=== PATIENT | male | born 1945 | race Hispanic/Latino ===

== ENCOUNTER → 2023-10-10 | Outpatient (CLI) | payer OTHER ==
[~2023-10-10] MED LIST: ASPI-1443 PO; ATOR40TA69 PO; LISI10TA24 PO; TAMS0.4C32 PO
== END | disposition home or self-care (01) ==
LOC: RAH 12:02
PROVIDERS: ATTEND Orthopaedic Surgery
DX: M17.11 Unilateral primary osteoarthritis, right knee (principal); M85.89 Other specified disorders of bone density and structure, multiple sites; M77.31 Calcaneal spur, right foot
CPT/HCPCS: 73700